=== PATIENT | female | born 1950 | race Caucasian/White ===

== ENCOUNTER → 2019-09-07 11:14 | Outpatient (BNVA) | payer MEDICARE, SELFPAY | PROVIDERS: Family Provider Nurse Practitioner Family; PCP Nurse Practitioner Family; Visit Provider Registered Nurse | DX: Z71.89 Other specified counseling (principal); I10 Essential (primary) hypertension; K21.9 Gastro-esophageal reflux disease without esophagitis | CPT/HCPCS: 80053; 80061; 85025 ==

== ENCOUNTER 2020-01-18 09:04 | Outpatient (CLI) | payer MEDICARE, SELFPAY ==
[2020-01-18 09:49] VITALS: BMI 27.8
--- NOTE | 2020-01-18 09:49 | ECG_ITS ---
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 Interpretive Statements NAME OF STUDY: LEXISCAN SESTAMIBI STRESS TEST INDICATION: Chest Pain, LEXISCAN STRESS TEST ORDERING PHYSICIAN: Unknown CLINICAL INFORMATION: Unknown INTERPRETATION: 1. The patient was brought to the laboratory where Lexiscan was infused over 20 seconds. The resting blood pressure was 167/92. Maximum blood pressure was 167/92. The resting heart rate was 61 beats per minute. The maximum heart rate is 97 beats per minute. 2. The baseline electrocardiogram reveals normal sinus rhythm and is a normal tracing 3. With Lexiscan infusion, there were no ST segment changes to suggest ischemia. 4. The patient experienced no symptoms or arrhythmias during the examination. CONCLUSION: 1. Unremarkable Lexiscan infusion. 2. Nuclear imaging to follow. Electronically Signed On 01-18-2020 17:25:04 CDT by Jarod Duvall M.D. [id number]
--- NOTE | 2020-01-18 09:50 | NMCV_ITS ---
NM erick perf SPECT r/s* [id number] Rosa Luciano Age: 69 Gender: F : 1950 Exam Date: 01/18/2020 10:21 Ordering Phys: Padmini Haynes-C [employer] INTERN Technologist: ELINOR Hernandez Exam Location: [facility] Indications: CHEST PAIN STRESS TEST Please see separate stress test report in [facility] for full findings IMAGE PROTOCOL Rest/Stress 1 Lexiscan Day Radiopharmaceutical Dose (mCi) Administration Site Administered by Rest: Tc-99m 10.5 IV ELINOR Hernandez Sestamibi Stress:Tc-99m 32.6 IV ELINOR Graham Sestamibi Rest: 18-Jan-2020 60 Discovery 630 Stress: 18-Jan-2020 30 Discovery 630 0.4mg Lexiscan. Images obtained in supine and prone position. SPECT RESULTS Technical Quality: Excellent Raw Data Analysis: Normal Image Corrections: No attenuation or motion correction applied Summed Stress Score: 1 Summed Rest Score: 1 Summed Difference Score: 0 PERFUSION FINDINGS SPECT images demonstrate homogeneous tracer distribution throughout the myocardium. FUNCTIONAL RESULTS (calculated via Gated SPECT) Stress Image LV EF (%): 85 Stress EDV (mL):62 TID: 1 Stress ESV (mL):9 Rest Image LV EF (%): 85 FUNCTIONAL FINDINGS: There is normal left ventricular systolic function. IMPRESSIONS Myocardial perfusion imaging is normal and low probability for obstructive coronary disease. EKG segment will be documented separately. Dorothy Givens MD (Electronically Signed) Final Date: 18 January 2020 17:33 S
[2020-01-18] MEDS: regadenoson 0.4 Mg/5 ml Syringe IVP (11:41)
[2020-01-18 11:42] VITALS: BP 133/78; PULSE 87
[2020-01-18] MEDS: ondansetron 2 mg/ML SDV 2 mL 4 MG IVP (12:22)
== END 2020-01-18 09:05 | disposition home or self-care (01) ==
LOC: CDL 09:06
PROVIDERS: PCP Nurse Practitioner Family; Visit Provider Nurse Practitioner Family
DX: R07.9 Chest pain, unspecified (principal)
CPT/HCPCS: 78452; 93017; A9500; J2405; J2785

== ENCOUNTER → 2020-08-18 14:47 | Outpatient (BNVA) | payer MEDICARE, SELFPAY | PROVIDERS: PCP Nurse Practitioner Family; Visit Provider Registered Nurse | DX: R10.32 Left lower quadrant pain | CPT/HCPCS: 81000 ==

== ENCOUNTER 2020-09-05 11:23 | Outpatient (CLI) | payer MEDICARE, SELFPAY ==
--- NOTE | 2020-09-05 13:00 | CT_ITS ---
WS: [id number] CT ABDOMEN PELVIS TECHNIQUE: Noncontrast CT of the abdomen and pelvis with coronal and sagittal reformatted images. CLINICAL INFORMATION: R10.32 - Left lower quadrant pain COMPARISON: None. DLP: 683.[address] scans at [facility] use at least one of these dose optimization techniques: automat ed exposure control; mA and/or kV adjustment per patient size (includes targeted exams where dose is matched to clinical indication); or iterative reconstruction. FINDINGS: Enlarged left hepatic lobe. Low-attenuation lesions in both hepatic lobes most consistent with hepati c cysts the largest in the left hepatic lobe left upper quadrant measuring 3.7 x 2.5 CM. Lung bases a re well aerated. Noncalcified pulmonary nodule right lower lobe measuring 4 mm. Moderate esophageal hiatal hernia. Mild fatty atrophy of the pancreas. Adrenal glands are normal. No obstructing renal or ureteral calculi. Pelvic phleboliths. Normal noncontrast spleen. Sigmoid diverti culosis. No evidence of high-grade small or large bowel obstruction. No abdominal or pelvic lymphaden opathy. Tiny fat-containing inguinal hernia. Noncontrast uterus is heterogeneous in appearance with abnormal endometrial thickening measuring 25 m m. Recommend further evaluation with ultrasound. Small right ovarian cyst. CT/CT abdomen pelvis wo con [id number] IMPRESSION: 1. Heterogeneous lobulated uterus with marked endometrial thickening or endome trial mass measuring 2.6 CM. Recommend further evaluation with ultrasound. Find ings suspicious for endometrial neoplasm 2. Small right ovarian cyst measuring 2.1 cm. 3. No obstructing renal or ureteral calculi. No hydronephrosis. 4. Low-attenuation hepatic cysts the largest measuring 3.7 x 2.4 cm left hepat ic lobe. 5. Moderate esophageal hiatal hernia. 6. Noncalcified nodule right lower lobe measuring 4 mm. Recommend 6 month foll ow-up chest CT.
== END 2020-09-05 11:24 | disposition home or self-care (01) ==
LOC: CT 11:27
PROVIDERS: PCP Nurse Practitioner Family; Visit Provider Registered Nurse
DX: R10.32 Left lower quadrant pain (principal); R91.1 Solitary pulmonary nodule; K44.9 Diaphragmatic hernia without obstruction or gangrene; K76.89 Other specified diseases of liver; N83.291 Other ovarian cyst, right side; Q51.818 Other congenital malformations of uterus
CPT/HCPCS: 74176

== ENCOUNTER → 2020-09-06 16:10 | Outpatient (BNVA) | payer MEDICARE, SELFPAY | PROVIDERS: PCP Nurse Practitioner Family; Visit Provider Registered Nurse | DX: R93.5 Abnormal findings on diagnostic imaging of other abdominal regions, including retroperitoneum (principal); R10.32 Left lower quadrant pain; M47.812 Spondylosis without myelopathy or radiculopathy, cervical region; N94.89 Other specified conditions associated with female genital organs and menstrual cycle; N83.201 Unspecified ovarian cyst, right side; K76.89 Other specified diseases of liver; K44.9 Diaphragmatic hernia without obstruction or gangrene; R91.1 Solitary pulmonary nodule | CPT/HCPCS: 80053; 85007; 85027; 86304 ==

== ENCOUNTER 2020-09-26 12:23 | Outpatient (CLI) | payer MEDICARE, SELFPAY ==
--- NOTE | 2020-09-26 12:45 | US_ITS ---
WS: [id number] ULTRASOUND PELVIS TECHNIQUE: Transabdominal and transvaginal. ULTRASOUND PELVIS TECHNIQUE: Transabdominal. CLINICAL INFORMATION: N94.89 - Other specified conditions associated with female genital organs and m enstrual cycle LMP: ? : No. COMPARISON: None. FINDINGS: Uterus Orientation: Anteverted. Size: 8.8 cm x 4.4 cm x 4.1 cm. Masses: Solid mass anterior uterus with increased vascularity measuring 3.3 x 2.7 x 3.1 cm is nonspec ific and suspicious for neoplasm considering endometrial thickening Cervix: Complex cystic or polypoid lesion in the cervix measuring 1.4 x 0.8 x 1.5 cm. Recommend direc t visualization. Endometrium: Heterogeneous and markedly thickened Endometrium thickness: 2.6 cm. Adnexa: Small cyst right ovary measuring 1.5 x 1.9 x 1.5 cm Right ovary size: 2.2 cm x 2.1 cm x 1.3 cm. Right ovary volume: 3.1 ccm3. Left ovary size: 2.3 cm x 2.1 cm x 0.9 cm. Left ovary volume: 2.3 ccm3 Free fluid: None. Other findings: None. US/US pelvic with transvaginal IMPRESSION: 1. Masslike endometrial thickening abnormal in a postmenopausal patient measur ing 25 mm. Findings suspicious for neoplasia. Recommend hysteroscopy. 2. Solid mass anterior uterus with increased vascularity measuring 3.3 x 2.7 x 3.1 cm is nonspecific and suspicious for neoplasm considering endometrial thic kening. Fibroid is less likely. 3. Heterogeneous complex cystic or polypoid lesion in the cervix measuring 1.4 x 0.8 x 1.5 cm. Recommend direct visualization. 4. Small cyst right ovary. Ovaries otherwise unremarkable. 5. No free fluid in the cul-de-sac.
== END 2020-09-26 12:24 | disposition home or self-care (01) ==
LOC: US 12:25
PROVIDERS: PCP Registered Nurse; Visit Provider Registered Nurse
DX: N94.89 Other specified conditions associated with female genital organs and menstrual cycle (principal); N83.201 Unspecified ovarian cyst, right side; N85.9 Noninflammatory disorder of uterus, unspecified
CPT/HCPCS: 76830; 76856

== ENCOUNTER → 2020-09-28 16:06 | Outpatient (BNVA) | payer MEDICARE, SELFPAY | PROVIDERS: PCP Registered Nurse; Visit Provider Obstetrics & Gynecology | DX: N85.9 Noninflammatory disorder of uterus, unspecified (principal); N83.201 Unspecified ovarian cyst, right side | CPT/HCPCS: 88305 ==

== ENCOUNTER → 2020-09-30 10:19 | Outpatient (BNVA) | payer MEDICARE, SELFPAY | PROVIDERS: PCP Registered Nurse; Visit Provider Obstetrics & Gynecology | DX: N88.8 Other specified noninflammatory disorders of cervix uteri (principal); Z11.52 Encounter for screening for COVID-19 | CPT/HCPCS: 87635 ==

== ENCOUNTER 2020-10-06 08:42 | Day surgery (SDC) | payer MEDICARE, SELFPAY ==
[2020-09-30 10:47] VITALS: BMI 29.5
--- NOTE | 2020-09-30 13:21 | ANES.PREANE2 ---
Pre-Anesthetic Assessment Pre-Anesthetic Assessment: Height/Weight: Height 1.52 m Weight 68.492 kg Preop Diagnosis: uterine and cervical mass Proposed Procedure: Operation Date: 10/06/20 10:10 Proposed Procedures p Hysteroscopy w/ Myosure N88.8 92166, 25152(Not Applicable) - Katina English MD s Dilation And Curettage (D&C)(Not Applicable) - Katina English MD Was Beta Brandi taken within 24 hours: Yes Was Clonidine taken within 24 hours: N/A Social: Social History: No alcohol and No tobacco Exam: Pre-Anes Outpt Exam: alert, oriented x 3, clear to auscultation bilaterally and regular rate & rhythm Airway: Submandibular: WNL Cervical ROM: WNL MP: 2 CV/HEM: CV/HEM: HTN GI: GI: GERD Anesthetic Plan: ASA status: 2 Anesthesia: General Risk of > 500 ml blood loss (7ml/kg in children): No PFSH Anesthesia PFSH: Medical History Essential hypertension Gastro-esophageal reflux disease without esophagitis Non-smoker Social History (Updated 09/28/20 @ 15:17 by RENNY Barreto) Smoking and tobacco status: never smoked Alcohol intake: never Adopted: No Caregiver/support person: No Lives independently: No Household members: spouse Marital status: Current occupational status: retired History of recent travel: No Sexually active: Yes Current gender identity: Female Data Anesthesia Cardiac Studies: No Data to Display
[2020-10-06] VITALS (8 sets, daily range): BP systolic 131–181; BP diastolic 75–112; PULSE 63–72; RESP 15–21; TEMP 36.1–36.5; O2SAT 94–100
--- NOTE | 2020-10-06 08:55 | SUR.PREOP ---
patient previously signed blood refusal consent. she wants to retract that today stating she recently took some medication that would cause bleeding and she was worried about that so she wanted to retract blood refusal.
[2020-10-06] MEDS: ketorolac 30 mg/mL INJ IVP (09:16)
[2020-10-06] MEDS: sodium chloride 0.9% 500 ML IV (09:16)
[2020-10-06] MEDS: sodium chloride 0.9% 1,000 ML 30 ML IV (09:30)
--- NOTE | 2020-10-06 10:16 | P.ANESUD_ITS ---
Pre-Anesthetic Update Pre-Anesthetic Assessment: Date of Surgery/Procedure: 10/06/20 Preop Kaci gnosis: uterine and cervical mass Proposed Procedure: Operation Date: 10/06/20 10:20 Proposed Procedures p Hysteroscopy w/ Myosure N88.8 34173, 18106(Not Applicable) - Katina English MD s Dilation And Curettage (D&C)(Not Applicable) - Katina English MD Any changes to Pre-Anesthetic Assessment?: No Last Intake: Intake Last Liquid Date 10/05/20 Last Liquid Time 20:00 Last Solid Date 10/05/20 Last Solid Time 20:00 Vitals: Temperature 97.2 F L 10/06/20 09:01 Temperature Source Temporal Artery S can 10/06/20 09:01 Pulse Rate 72 10/06/20 09:01 Pulse Rhythm 10/06/20 09:01 Pulse Strength 3+ Normal 10/06/20 09:01 Respiratory Rate 18 10/06/20 09:01 Blood Pressure 181/112 10/06/20 09:01 Blood Pressure Rhona n 135 10/06/20 09:01 Pulse Oximetry 98 10/06/20 09:01 Oxygen Delivery Me thod 10/06/20 09:01 Exam: Pre-Anes Outpt Exam: alert, oriented x 3, clear to auscultation bilaterally and regular rate & rhythm Cardiac Studies: No Data to Display
--- NOTE | 2020-10-06 10:28 | W.PM.OPSUD ---
Surgery/Procedure H&P Update DATE OF PROCEDURE: October 06, 2020 DATE H&P PERFORMED: 09/28/20 H&P UPDATE INFORMATION: I have reviewed H&P completed within last 30 days, I have examined patient prior to procedure and No changes to prior documentation PREOP DIAGNOSIS: uterine and cervical mass PLANNED PROCEDURE: Operation Date: 10/06/20 10:20 Proposed Procedures p Hysteroscopy w/ Myosure N88.8 45533, 04923(Not Applicable) - Katina English MD s Dilation And Curettage (D&C)(Not Applicable) - Katina English MD
--- NOTE | 2020-10-06 11:06 | PC.NURSE ---
0509 spoke with patient's and gave him an update. chuck
--- NOTE | 2020-10-06 11:32 | P.OP_ITS ---
Operative Report Date of procedure: October 06, 2020 Pre-op Diagnosis: uterine and cervical mass Post-op diagnosis: same Post-op Findings: Large fibroid appearing mass. Smaller polyp appearing mass Procedure Done: hysteroscopy, dilation and curettage with myosure Specimens removed/disposition: endometrial curettings Pathology: other Pathology: endometrial curettings. Surgeon: Katina English Anesthesia: General Estimated blood loss (mL): 10 IV fluids (mL): 1,000 Urine output (mL): 20 Complications: none Findings: 8 week sized uterus with large submucosal fibroid on the right and polyp on the left Condition: stable Disposition: PACU Procedure: Patient was taken to the operating room where general anesthesia was administered and found to be adequate. She was prepped and draped in the normal sterile fashion in the dorsal lithotomy position in Donald stirrups. The bladder was drained. A weighted speculum was placed in the vagina and the anterior lip of the cervix grasped with a single-tooth tenaculum. The uterus was sounded to 8 cm. Obex was then dilated to 16 Turkmen. The hysteroscope was advanced into the endometrial cavity and immediately there was a large mass visualized on the right. A smaller polypoid mass was visualized on the left. The MyoSure device was placed and activated and the polyp removed first and then attention was tur josue to the other mass. It was removed almost in its entirety and texture of it is most likely a fibroid. Pictures were taken pre and post procedure. All instruments were removed. The patient tolerated the procedure well. Sponge lap and needle counts were correct x3 and she was taken to the recovery room in stable condition.
--- NOTE | 2020-10-06 11:39 | PM.DCS ---
Discharge Providers Date of Discharge: October 06, 2020 Attending Provider at Discharge: Katina English MD Primary Care Provider: JING Bernard Diagnoses at Discharge Discharge Diagnosis (1) Postoperative state: Status: Acute Reason for Visit Reason for Visit: Mass of Uterine & cervical mass N88.8 [id number] Hospital Course Hospital Course The patient was admitted for surgery. She did well postop and was ready for discharge Physical Exam Urinary Catheter Management^: Straight: Cath Placed During This Visit: no Discharge Data Data Completed and Pending: Pending at discharge Category Date Time Status ES surgery / GI i mages Routine Exams 10/06/20 10:31 Taken Pathology: Surgic al [PTH] Routine Pth 10/06/20 11:36 Ordered Vitals: Last Vital Signs Temp 97 F L 10/06/20 11:32 Pulse 68 10/06/20 11:35 Resp 21 H 10/06/20 11:35 BP 143/75 10/06/20 11:35 Pulse Ox 100 10/06/20 11:35 Discharge Plan Discharge Patient Disposition: Home Condition: Stable Prescriptions: Continued omeprazole 20 mg capsule,delayed release(DR/EC) 20 mg PO DAILY Qty: 30 RF: 5 misoprostol [Cytotec] 200 mcg tablet 600 mcg PO Q6H 1 Days Qty: 12 RF: 0 hydrochlorothiazide 25 mg tablet 25 mg PO DAILY Qty: 30 RF: 0 Imitrex 50 mg tablet 50 mg PO PRN RF: 0 metoprolol tartrate 25 mg tablet 25 mg PO BID RF: 0 Discharge Orders: Discharge Order (Routine); Ordered 10/06/20 Ordered By: Katnia English Discharge Attestations Time Spent in Discharge Care*: less than 30 min Quality Metrics Clinical Quality Measures During this hospital stay, did patient experience: None Coding Level of Care Code Acute Chg FW DC note Diagnoses Postoperative state Z98.890
[2020-10-06] MEDS: cetylpyridinium Lozenge 1 EACH MUCOUS MEM (12:26)
--- NOTE | 2020-10-06 20:50 | ANE.PACU2 ---
Inpatient post-anesthesia follow up: Airway intact: Yes Vital signs: Temperature 97 F Pulse Rate 70 Respiratory Rate 16 Blood Pressure 131/98 Pulse Oximetry 95 Oxygen Delivery Me thod Room Air Oxygen Flow Rate 8 Fraction of Inspir ed Oxygen Hydration adequate: Yes Nausea and vomiting: No Pain level: 2 Mental status: Baseline
== END 2020-10-06 12:40 | disposition home or self-care (01) ==
PROVIDERS: PCP Registered Nurse; Visit Provider Obstetrics & Gynecology
PROC: 0UDB8ZZ Extraction of Endometrium, Via Natural or Artificial Opening Endoscopic (ICD-10-PCS; CPT 58558; principal; 2020-10-06 10:10)
PROC: (CPT 58120; 2020-10-06 10:10)
DX: D25.9 Leiomyoma of uterus, unspecified (principal); I10 Essential (primary) hypertension; K21.9 Gastro-esophageal reflux disease without esophagitis; N84.0 Polyp of corpus uteri
CPT/HCPCS: 58558; 88305; 96374; J0690; J1885; J2405; J2704; J2710; J3010; J3490; J7030; J7040

== ENCOUNTER 2020-12-05 09:00 | Outpatient (CLI) | payer MEDICARE, SELFPAY | END 2020-12-05 09:01 | disposition home or self-care (01) | LOC: LAB 09-28 16:49 | PROVIDERS: PCP Registered Nurse; Visit Provider Registered Nurse | DX: E78.5 Hyperlipidemia, unspecified (principal); I10 Essential (primary) hypertension | CPT/HCPCS: 80053; 80061 ==

== ENCOUNTER → 2021-12-04 11:29 | Outpatient (BNVA) | payer MEDICARE, SELFPAY | PROVIDERS: PCP Registered Nurse; Visit Provider Registered Nurse | DX: I10 Essential (primary) hypertension (principal); M54.50 Low back pain, unspecified; G89.29 Other chronic pain; M17.12 Unilateral primary osteoarthritis, left knee; K59.00 Constipation, unspecified | CPT/HCPCS: 80053; 80061; 85025 ==

== ENCOUNTER 2022-01-11 06:47 | Outpatient (CLI) | payer OTHER, SELFPAY ==
--- NOTE | 2022-01-11 07:15 | US_ITS ---
WS: [id number] TRANSABDOMINAL PELVIC AND TRANSVAGINAL PELVIC ULTRASOUND HISTORY: N85.8 - Other specified noninflammatory disorders of uterus COMPARISON: 09/26/2020 Uterus: 8.0 cm x 5.4 cm x 4.1 cm. Anteverted normal size uterus. The uterus is not as well visualized as on the prior examination. There is a bulbous contour of the uterus and ill-defined hypoechoic mas s in the myometrium measuring approximately 3.5 x 2.7 x 2.2 cm. Endometrium: Not well visualized. There is a portion of the endometrium measuring 8 mm towards the fu ndus of the uterus. This is incompletely visualized. Right ovary: 2.7 cm x 2.3 cm x 3.6 cm. Cyst associated with the RIGHT ovary measures 2.2 x 2.7 x 2.1 cm. Through transmission. No solid component. Left ovary: 2.8 cm x 1.6 cm x 1.9 cm. Normal size. No free fluid. US/US pelvic with transvaginal IMPRESSION: 1. Quality of this ultrasound examination is suboptimal to evaluate the endome trium and myometrium. Previously described uterine mass and abnormal endometriu m are not well visualized today. There are abnormalities present which may be s econdary to fibroids. Recommend follow-up MRI pelvis with and without contrast (HIDE EXAMINER protocol). 2. Small RIGHT ovarian cyst.
== END 2022-01-11 06:48 | disposition home or self-care (01) ==
LOC: RAD 06:47
PROVIDERS: PCP Registered Nurse; Visit Provider Obstetrics & Gynecology
DX: N85.8 Other specified noninflammatory disorders of uterus (principal); N83.201 Unspecified ovarian cyst, right side
CPT/HCPCS: 76830; 76856

== ENCOUNTER 2022-01-29 13:31 | Outpatient (CLI) | payer MEDICARE, SELFPAY ==
--- NOTE | 2022-01-29 14:30 | MR_ITS ---
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 COMPARISON: Pelvic ultrasound 01/11/2022 and 09/26/2020 Multiplanar, multisequence imaging is performed with and without contrast. Sagittal and axial T1 fat sat sequences post-MultiHance 20 cc IV. History: Poor visualization of the endometrium and myometrium on a prior pelvic ultrasound. Incomplet e evaluation of the endometrium and myometrium. Uterus is midline and anteverted. No uterine enlargement. Complex cyst involving the cervix consisten t with nabothian cysts that was previously described. This measures 11 x 14 mm maximum diameter. Mixed signal mass in the anterior myometrium measures 2.7 x 2.5 cm and is predominantly low signal on all sequences with a few areas of increased signal. Mild enhancement. Consistent with a intramural f ibroid. This fibroid is causing distortion and posterior displacement and bowing of the endometrium. The endometrium measures approximately 3 mm. The junctional zone is partially distorted by the fibroi d but predominantly appears intact. No adjacent endometrial neoplasm is identified. No restricted dif fusion fibroid. RIGHT adnexal cyst measures 2.5 x 2.0 cm. This follows fluid on all sequences with no enhancement. No free fluid in the pelvis. No adenopathy. Increased signal along the SI joints. There are also erosions. Consider psoriatic arthritis. MR/MR pelvis wo/w con [id number] IMPRESSION: 1. Intramural fibroid along the anterior myometrium measures 2.7 x 2.5 cm. Fib roid is causing distortion and posterior bowing of the endometrium. 2. The endometrium is normal size at 3 mm. 3. Nabothian cysts. 4. Abnormal SI joints. Edema, mild widening of the SI joints with erosions. Co rrelate for possible psoriatic arthritis. 5. No adenopathy or ascites.
[2022-01-29] MEDS: gadobenate dimeglumine 20 mL vial IV (15:26)
== END 2022-01-29 13:32 | disposition home or self-care (01) ==
PROVIDERS: PCP Registered Nurse; Visit Provider Obstetrics & Gynecology
DX: N80.0 Endometriosis of uterus (principal); N88.8 Other specified noninflammatory disorders of cervix uteri
CPT/HCPCS: 72197

== ENCOUNTER → 2022-11-01 08:39 | Outpatient (BNVA) | payer MEDICARE, SELFPAY | PROVIDERS: PCP Registered Nurse; Visit Provider Registered Nurse | DX: I10 Essential (primary) hypertension (principal); E78.5 Hyperlipidemia, unspecified | CPT/HCPCS: 80053; 80061; 85025 ==

== ENCOUNTER → 2023-10-16 09:05 | Outpatient (BNVA) | payer MEDICARE, SELFPAY | PROVIDERS: PCP Registered Nurse; Visit Provider Registered Nurse | DX: I10 Essential (primary) hypertension (principal); K21.9 Gastro-esophageal reflux disease without esophagitis | CPT/HCPCS: 80053; 80061; 85025 ==

== ENCOUNTER → 2024-07-02 09:32 | Outpatient (BNVA) | payer MEDICARE, SELFPAY | PROVIDERS: PCP Registered Nurse; Visit Provider Registered Nurse | DX: R11.10 Vomiting, unspecified (principal) | CPT/HCPCS: 87400; 87426 ==

== ENCOUNTER → 2024-08-11 09:09 | Outpatient (BNVA) | payer MEDICARE, SELFPAY | PROVIDERS: PCP Registered Nurse; Visit Provider Registered Nurse | DX: I10 Essential (primary) hypertension (principal) | CPT/HCPCS: 80053; 80061; 85025 ==

== ENCOUNTER → 2025-02-11 09:28 | Outpatient (BNVA) | payer MEDICARE, SELFPAY | PROVIDERS: PCP Registered Nurse; Visit Provider Registered Nurse | DX: S39.012A Strain of muscle, fascia and tendon of lower back, initial encounter (principal); X58.XXXA Exposure to other specified factors, initial encounter | CPT/HCPCS: 81000 ==

== ENCOUNTER 2025-02-16 09:05 | Outpatient (CLI) | payer MEDICARE, SELFPAY ==
--- NOTE | 2025-02-16 09:30 | MR_ITS ---
WS: [id number] MRI LUMBAR SPINE NONCONTRAST TECHNIQUE: Sagittal T1, T2 and STIR imaging. Axial T1 and T2 imaging. CLINICAL INFORMATION: M53.3 - Sacrococcygeal disorders, not elsewhere classified COMPARISON: None. FINDINGS: Mild lumbar curve. No acute compression. Grade 1 anterolisthesis L4 on L5 and L5 on S1. Incidental small Tarlov cyst in the sacrum. RIGHT foraminal protrusion T11-T12 with moderate RIGHT foraminal narrowing. L1-L2: Mild disc bulge with narrowing of the subarticular recess bilaterally. Mild central canal stenosis. Mild facet arthropathy. Mild RIGHT foraminal narrowing. L2-L3: Shallow central and LEFT subarticular disc protrusion impinges the LEFT subarticular recess and traversing LEFT L3 nerve root. Mild central canal stenosis. Mild LEFT foraminal narrowing. Mild facet arthropathy. L3-L4: Broad-based disc bulging with moderate narrowing of the thecal sac. Impingement on the LEFT subarticular recess and traversing LEFT L4 nerve root. Mild LEFT foraminal narrowing. Mild facet arthropathy. Prominent epidural fat at this level. L4-L5: Moderate central canal stenosis due to disc bulging in combination with facet arthropathy and ligamentum flavum hypertrophy. Mild LEFT greater than RIGHT foraminal narrowing. L5-S1: Tapering of the distal thecal sac. Grade 1 anterolisthesis. Mild disc bulging. Moderate facet arthropathy. Mild bilateral foraminal narrowing. Visualized pelvic bony structures: Normal. Paravertebral soft tissues: Normal. Partially visualized small exophytic RIGHT renal cyst. Degenerative arthritis sacroiliac joints. Partially visualized 2.1 cm hepatic cyst. MR/MR lumbar spine wo con* [id number] IMPRESSION: 1. Mild lumbar curve. Grade 1 anterolisthesis L4 on L5 and L5 on S1. 2. LEFT subarticular protrusion L2-3 impinges the traversing LEFT L3 nerve jing t in the subarticular recess. Mild central canal stenosis at this level. 3. Moderate central canal stenosis L3-4 and L4-5. 4. Distal tapering with small thecal sac L5-S1 with moderate narrowing. 5. RIGHT foraminal protrusion T11-T12 with moderate RIGHT foraminal narrowing.
== END 2025-02-16 09:06 | disposition home or self-care (01) ==
LOC: RAD 09:07
PROVIDERS: PCP Registered Nurse; Visit Provider Registered Nurse
DX: M53.3 Sacrococcygeal disorders, not elsewhere classified (principal); M51.16 Intervertebral disc disorders with radiculopathy, lumbar region; M51.24 Other intervertebral disc displacement, thoracic region
CPT/HCPCS: 72148

== ENCOUNTER → 2025-03-02 12:49 | Outpatient (BNVA) | payer MEDICARE, SELFPAY | PROVIDERS: PCP Registered Nurse; Visit Provider Orthopaedic Surgery | DX: M48.061 Spinal stenosis, lumbar region without neurogenic claudication (principal); G89.29 Other chronic pain | CPT/HCPCS: 72110; 99204 ==

== ENCOUNTER → 2025-03-22 09:26 | Outpatient (BNVA) | payer MEDICARE, SELFPAY | PROVIDERS: PCP Registered Nurse; Visit Provider Anesthesiology Pain Medicine | DX: M54.9 Dorsalgia, unspecified (principal); M47.816 Spondylosis without myelopathy or radiculopathy, lumbar region | CPT/HCPCS: 99204 ==

== ENCOUNTER → 2025-04-06 13:25 | Outpatient (BNVA) | payer MEDICARE, SELFPAY | PROVIDERS: PCP Registered Nurse; Visit Provider Anesthesiology Pain Medicine | DX: M47.816 Spondylosis without myelopathy or radiculopathy, lumbar region (principal) | CPT/HCPCS: 64493; 64494; 64495; J3490; J9999 ==

== ENCOUNTER → 2025-04-12 13:32 | Outpatient (BNVA) | payer MEDICARE, SELFPAY | PROVIDERS: PCP Registered Nurse; Visit Provider Anesthesiology Pain Medicine | DX: M54.9 Dorsalgia, unspecified (principal); M47.816 Spondylosis without myelopathy or radiculopathy, lumbar region | CPT/HCPCS: 99214 ==

== ENCOUNTER → 2025-05-05 10:03 | Outpatient (BNVA) | payer MEDICARE, SELFPAY | PROVIDERS: PCP Registered Nurse; Visit Provider Anesthesiology Pain Medicine | DX: M47.816 Spondylosis without myelopathy or radiculopathy, lumbar region (principal) | CPT/HCPCS: 64493; 64494; 64495; J3490; J9999 ==

== ENCOUNTER → 2025-05-17 08:58 | Outpatient (BNVA) | payer MEDICARE, SELFPAY | PROVIDERS: PCP Registered Nurse; Visit Provider Anesthesiology Pain Medicine | DX: M47.816 Spondylosis without myelopathy or radiculopathy, lumbar region (principal) | CPT/HCPCS: 99214 ==

== ENCOUNTER → 2025-05-26 09:12 | Outpatient (BNVA) | payer MEDICARE, SELFPAY | PROVIDERS: PCP Registered Nurse; Visit Provider Anesthesiology Pain Medicine | DX: M47.816 Spondylosis without myelopathy or radiculopathy, lumbar region (principal) | CPT/HCPCS: 64635; 64636; J1100; J9999 ==

== ENCOUNTER → 2025-06-16 09:43 | Outpatient (BNVA) | payer MEDICARE, SELFPAY | PROVIDERS: PCP Registered Nurse; Visit Provider Anesthesiology Pain Medicine | DX: M47.816 Spondylosis without myelopathy or radiculopathy, lumbar region (principal) | CPT/HCPCS: 64635; 64636; J1100; J9999 ==

== ENCOUNTER → 2025-06-22 10:50 | Outpatient (BNVA) | payer MEDICARE, SELFPAY | PROVIDERS: PCP Registered Nurse; Visit Provider Orthopaedic Surgery | DX: M47.816 Spondylosis without myelopathy or radiculopathy, lumbar region (principal) | CPT/HCPCS: 99213 ==

== ENCOUNTER → 2025-06-29 09:13 | Outpatient (BNVA) | payer MEDICARE, SELFPAY | PROVIDERS: PCP Registered Nurse; Visit Provider Anesthesiology Pain Medicine | DX: M47.816 Spondylosis without myelopathy or radiculopathy, lumbar region (principal) | CPT/HCPCS: 99214 ==